=== PATIENT | female | born 1945 | race Caucasian/White ===

== ENCOUNTER → 2018-08-30 12:27 | Outpatient (CLI) | payer MEDICARE, SELFPAY ==
--- NOTE | 2018-08-30 | DI.US.S_ITS ---
PROCEDURE: US ASPIRATION CYST COMPARISON: None. INDICATIONS: LEFT KNEE BAKERS CYST PROCEDURE: PAR conference was performed with the patient all questions were answered. The patient gave informed written and verbal consent to proceed. The left popliteal fossa was imaged, and a suitable skin entry site was selected. Area was prepped and draped in the usual sterile fashion. Local anesthesia was placed using 1% lidocaine. Under ultrasound guidance, 20 gauge spinal needle was advanced into potential fluid collection however no fluid was able to be aspirated despite multiple attempts. Needle was withdrawn and hemostasis achieved. Patient tolerated procedure without immediate competition. FINDINGS: No definite loculated fluid collection to suggest Andrew's cyst is seen. There was hypoechoic appearing focus seen at the left posterior knee, potentially fluid collection however attempts to aspirate were unsuccessful. This could represent hypoechoic edematous tissue. Overall, no definite focal fluid collection is likely present. IMPRESSION: Unsuccessful ultrasound-guided aspiration of a presumed popliteal fluid collection. As discussed above, there is probably no significant fluid in this area. The attempted aspiration probably performed on an area of hypoechoic edematous tissue, which can sonographically mimic fluid. Findings were personally telephoned and discussed with Dr. Hillman on 08/30/18. Dictated by: Serafin Yuen M.D. on 08/30/2018 at 14:38 Approved by: Serafin Yuen M.D. on 08/30/2018 at 17:02
[2018-08-30 13:46] LABS: Add Manual Diff / Slide Review NO; Basophils Absolute Auto 100 /uL (0-100); Basophils Percent Auto 0.8 % (0-2); Eosinophils Absolute Auto 100 /uL (0-450); Eosinophils Percent Auto 1.5 % (2-4); Hematocrit 37.1 % (36-46); Hemoglobin 12.3 g/dL (12.0-16.0); Lymphocytes Absolute Auto 2000 /uL (1100-4500); Lymphocytes Percent Auto 22.2 % (25-40); Mean Corpuscular Hemoglobin 28.3 PG (26-34); Mean Corpuscular Volume 85.6 fL (80-100); Monocytes Absolute Auto 400 /uL (0-900); Monocytes Percent Auto 4.3 % (3-14); Neutrophils Absolute Auto 6300 /uL (1500-7000); Neutrophils Percent Auto 71.2 % (50-75); Platelet Count 519 X10^3/uL (150-400); Red Blood Cell Count 4.34 X10^6/uL (4.0-5.2); Red Cell Distribution Width 14.2 % (11.6-14.8); White Blood Cell Count 8.8 X10^3/uL (4.5-11.0)
[2018-08-30 14:05] LABS: C-Reactive Protein Quant 4.5 mg/dL (<1.0)
[2018-08-30 14:27] LABS: Erythrocyte Sedimentation Rate 92 MM/HR (0-20)
== END ==
PROVIDERS: Family Provider Physician Assistant Medical; PCP Physician Assistant Medical; Visit Provider Orthopaedic Surgery
DX: M71.22 Synovial cyst of popliteal space [Baker], left knee (principal); L03.116 Cellulitis of left lower limb; Z96.652 Presence of left artificial knee joint
CPT/HCPCS: 10005; 36415; 76942; 85025; 85651; 86140

== ENCOUNTER → 2018-09-06 09:37 | Outpatient (REF) | payer MEDICARE, SELFPAY | LOC: LAB 09:37 | PROVIDERS: Family Provider Physician Assistant Medical; PCP Physician Assistant Medical; Visit Provider Orthopaedic Surgery | DX: I89.0 Lymphedema, not elsewhere classified (principal); L03.116 Cellulitis of left lower limb; T84.84XD Pain due to internal orthopedic prosthetic devices, implants and grafts, subsequent encounter | CPT/HCPCS: 87070; 87075; 87077; 87147; 87205 ==

== ENCOUNTER → 2018-09-27 09:35 | Outpatient (REF) | payer MEDICARE, SELFPAY ==
[2018-10-03 12:15] LABS: Bacteria Det by PCR Univ WA SEE SEPARATE REPORTS
== END ==
LOC: LAB 09:35
PROVIDERS: Family Provider Physician Assistant Medical; PCP Physician Assistant Medical; Visit Provider Orthopaedic Surgery
DX: T84.84XA Pain due to internal orthopedic prosthetic devices, implants and grafts, initial encounter (principal); M25.462 Effusion, left knee
CPT/HCPCS: 87801

== ENCOUNTER 2021-10-30 13:25 | Emergency (ER) | payer MEDICARE, SELFPAY ==
[2021-10-30] VITALS (25 sets, daily range): BP systolic 108–166; BP diastolic 60–101; PULSE 68–164; RESP 14–32; TEMP 36.4; O2SAT 95–100
[2021-10-30 13:50] LABS: Add Manual Diff / Slide Review NO; Basophils Absolute Auto 100 /uL (0-100); Basophils Percent Auto 0.9 % (0-2); Eosinophils Absolute Auto 100 /uL (0-450); Eosinophils Percent Auto 0.7 % (2-4); Hematocrit 41.9 % (36-46); Hemoglobin 13.7 g/dL (12.0-16.0); Lymphocytes Absolute Auto 1900 /uL (1100-4500); Lymphocytes Percent Auto 25.6 % (25-40); Mean Corpuscular HGB Conc 32.8 % (30-36); Mean Corpuscular Hemoglobin 28.6 PG (26-34); Mean Corpuscular Volume 87.1 fL (80-100); Monocytes Absolute Auto 400 /uL (0-900); Monocytes Percent Auto 5.3 % (3-14); Neutrophils Absolute Auto 5100 /uL (1500-7000); Neutrophils Percent Auto 67.5 % (50-75); Platelet Count 328 X10^3/uL (150-400); Red Blood Cell Count 4.81 X10^6/uL (4.0-5.2); Red Cell Distribution Width 15.4 % (11.6-14.8); White Blood Cell Count 7.5 X10^3/uL (4.5-11.0)
--- NOTE | 2021-10-30 13:53 | ED_ITS ---
HPI - Arrhythmia/Palpitations General Chief Complaint: Arrhythmia/Palpitations Stated Complaint: States AFIB- sent by denise Time Seen by Provider: 10/30/21 13:38 Source: patient Mode of arrival: Ambulatory History of Present Illness HPI narrative: Patient is a 75-year-old female. Does have a history of atrial fibrillation. He is on warfarin. She had her INR checked last week and it was 2.5. She has always been between 2 and 3. She has had 2 prior cardioversions in the past. The last 1 was several years ago. Approximately 2 days ago started feeling like her heart was fluttering. Has had some occasional lightheadedness. No chest pain. No shortness of breath. Does have swelling in her left lower extremity but this is baseline for her after she had 2 left knee surgeries. Related Data Home Medications Medication Instructions Recorded Confirmed VITAMIN D (Vitamin D3) 2,000 iu PO QDAY #0 10/02/16 calcium carbonate 600 mg calcium 300 mg PO BID #0 10/02/16 (1,500 mg) tablet ferrous sulfate 325 mg (65 mg 325 mg PO QDAY #0 10/02/16 iron) tablet (Iron (ferrous sulfate)) furosemide 40 mg tablet 40 mg PO QDAY #0 10/02/16 metoprolol tartrate 25 mg tablet 25 mg PO BID #0 10/02/16 glucosamine sulfate 500 mg capsule 500 mg PO QDAY #0 10/04/16 (Genicin) Previous Rx's Medication Instructions Recorded hydrocodone 5 mg-acetaminophen 325 1 tab PO Q4HP PRN #60 tab 10/11/16 mg tablet ([place]) cephalexin 500 mg capsule (Keflex) 500 mg PO QID #60 cap 10/12/16 Allergies Allergy/AdvReac Type Severity Reaction Status Date / Time No Known Drug Allergies Allergy Verified 10/30/21 14:24 Review of Systems Constitutional Constitutional: Denies fever(s) Cardiovascular Cardiovascular: Reports as per HPI and Reports system reviewed and no additional complaints, except as documented Respiratory Respiratory: Reports as per HPI and Reports system reviewed and no additional complaints, except as documented Gastrointestinal Gastrointestinal: Reports as per HPI and Reports system reviewed and no additional complaints, except as documented Musculoskeletal Musculoskeletal: Reports system reviewed and no additional complaints, except as documented and Reports as per HPI Integumentary/Breasts Skin/Breast: Reports system reviewed and no additional complaints, except as documented Neurologic Neurologic: Reports system reviewed and no additional complaints, except as documented and Reports as per HPI Hematologic/Lymphatic On Anticoagulants: Yes Patient History Medical History Atrial fibrillation Social History marital status: lives independently: Yes Exam Initial Vital Signs Initial Vital Signs: Vital Signs Pulse Rate 152 H 10/30/21 13:30 Respiratory Rate 24 10/30/21 13:30 Pulse Oximetry 99 10/30/21 13:30 HENMT Head: normal to inspection and normocephalic Chest Chest: normal inspection of the chest Resp Effort & Inspection: normal respiratory effort Auscultation: clear to auscultation bilaterally Cardio Rate: tachycardic Rhythm: abnormal rhythm GI Inspection: normal to inspection and non-distended Skin General: no rashes or lesions noted Neuro General: patient alert, patient awake and moves all extremities Extrem General: normal to inspection and capillary refill normal Psych Appearance: grossly normal Procedures Cardioversion Consent Signed: Yes Indication: Atrial fibrillation Stability: Stable Number of attempts (shocks): 1 Joules used: 120 Cardiac rhythm post-cardioversion: Sinus rhythm Procedural Sedation Consent signed: Yes Time out performed: Yes Indication: cardioversion Preparation: classroom monitor applied, pulse oximeter, capnometry used, supplemental O2 applied, suction/airway equipment at bedside and IV secured Fentanyl: IV Fentanyl dose (mcg): 25 IV Propofol dose (mg): 60 Intraservice time/total sedation time (min): 15 ED Sedation Level: Moderate (Concious) Patient Tolerated Procedure: Well Complications: hypoxia Interventions: Airway repositioned, Assist by BVM and Oxygen applied Scores GCS [place] coma scale eye opening: Spontaneous [place] coma scale verbal response: Orientated [place] coma scale motor response: Obey commands [place] coma scale total score: 15 Course Orders Ordered: ED Orders 10/30/21 13:34 EKG-12 Lead Routine 10/30/21 13:39 RT Consult Eval and Treat Now 10/30/21 13:40 Complete Blood Count AUTO DIFF Stat Comprehensive Metabolic Panel Stat Lipase Stat Magnesium Stat 10/30/21 13:47 COVID19 -Nasal RAPID/Pre-Proc Stat 10/30/21 14:58 EKG-12 Lead Stat Discontinued Medications Fentanyl (Fentanyl 100 Mcg/2 Ml Inj) 25 mcg IV NOW ONE Stop: 10/30/21 13:55 Last Admin: 10/30/21 14:43 Dose: 25 mcg Documented by: CLINT Sodium Chloride (Normal Saline 0.9%) 1,000 mls @ 125 mls/hr IV CONT JOHANNA Last Infusion: 10/30/21 15:15 Dose: 0 mls/hr Documented by: Admin: 10/30/21 14:46 Dose: 125 mls/hr Documented by: CLINT Propofol (Propofol 200 Mg/20 Ml Vial) 100 mg 1 mg/kg (100 mg) IV NOW ONE Stop: 10/30/21 13:55 Last Admin: 10/30/21 14:49 Dose: 60 mg Documented by: CLINT Vital Signs Vital signs: Vital Signs - 8 hr 10/30/21 13:30 10/30/21 13:33 10/30/21 13:53 Temperature 97.6 F Pulse Rate 152 H 159 H 163 H Respiratory Rate 24 22 27 H Blood Pressure 150/101 H 149/88 H Pulse Oximetry 99 99 95 10/30/21 14:00 10/30/21 14:01 10/30/21 14:30 Temperature Pulse Rate 163 H 164 H 162 H Respiratory Rate 17 19 20 Blood Pressure 166/95 H 128/83 Pulse Oximetry 97 97 96 10/30/21 14:48 10/30/21 14:51 10/30/21 14:53 Temperature Pulse Rate 156 H 73 Respiratory Rate 18 18 25 H Blood Pressure 131/83 138/73 Pulse Oximetry 99 100 10/30/21 14:55 10/30/21 14:56 10/30/21 14:57 Temperature Pulse Rate 68 72 Respiratory Rate 26 H 17 Blood Pressure 123/61 112/64 Pulse Oximetry 98 96 96 10/30/21 15:00 10/30/21 15:04 10/30/21 15:08 Temperature Pulse Rate 72 72 74 Respiratory Rate 28 H 32 H 28 H Blood Pressure 108/60 110/68 121/74 Pulse Oximetry 98 98 97 10/30/21 15:12 10/30/21 15:16 10/30/21 15:20 Temperature Pulse Rate 70 70 71 Respiratory Rate 17 17 21 Blood Pressure 121/72 117/72 120/74 Pulse Oximetry 97 97 97 10/30/21 15:24 10/30/21 15:28 10/30/21 15:30 Temperature Pulse Rate 71 71 70 Respiratory Rate 16 21 27 H Blood Pressure 115/70 125/76 Pulse Oximetry 97 97 98 10/30/21 15:32 10/30/21 15:36 10/30/21 15:40 Temperature Pulse Rate 77 75 69 Respiratory Rate 29 H 14 16 Blood Pressure 127/73 123/70 122/70 Pulse Oximetry 98 99 99 10/30/21 15:56 Temperature Pulse Rate 72 Respiratory Rate 18 Blood Pressure 125/72 Pulse Oximetry 98 MDM - Arrhythmia/Palpitations Lab Data Attestation: I reviewed the patient's lab results. Result diagrams: 10/30/21 13:40 10/30/21 13:40 Labs: Lab Results 10/30/21 10/30/21 10/30/21 Range/Units 13:40 13:40 13:40 WBC 7.5 (4.5-11.0) X10^3/uL RBC 4.81 (4.0-5.2) X10^6/uL Hgb 13.7 (12.0-16.0) g/dL Hct 41.9 (36-46) % MCV 87.1 (80-100) fL MCH 28.6 (26-34) PG MCHC 32.8 (30-36) % RDW 15.4 H (11.6-14.8) % Plt Count 328 (150-400) X10^3/uL Neut % (Auto) 67.5 (50-75) % Lymph % (Auto) 25.6 (25-40) % [place] % (Auto) 5.3 (3-14) % Eos % (Auto) 0.7 L (2-4) % Baso % (Auto) 0.9 (0-2) % Neut # (Auto) 5100 (6174-5889) /uL Lymph # (Auto) 1900 (8003-3665) /uL [place] # (Auto) 400 (0-900) /uL Eos # (Auto) 100 (0-450) /uL Baso # (Auto) 100 (0-100) /uL Sodium 140 (137-145) mmol/L Potassium 4.3 (3.4-5.1) mmol/L Chloride 109 H (98-107) mmol/L Carbon Dioxide 24 (22-32) mmol/L BUN 21 H (7-17) mg/dL Creatinine 0.82 (0.52-1.04) mg/dL Estimated GFR > 60 (>60) mL/min BUN/Creatinine Ratio 25.6 H (6-22) Glucose 100 (80-110) mg/dL Calcium 9.6 (8.4-10.2) mg/dL Magnesium 2.0 (1.6-2.3) mg/dL Total Bilirubin 0.5 (0.2-1.3) mg/dL AST 22 (14-36) IU/L ALT 15 (<35) IU/L Alkaline Phosphatase 92 (38-126) U/L Total Protein 7.4 (6.3-8.2) g/dL Albumin 4.0 (3.5-5.0) g/dL Globulin 3.4 (1.7-4.1) g/dL Albumin/Globulin Ratio 1.2 (1.0-2.8) Lipase 147 (23-300) U/L SARS-CoV-2 (PCR) (Negative) 10/30/21 Range/Units 13:47 WBC (4.5-11.0) X10^3/uL RBC (4.0-5.2) X10^6/uL Hgb (12.0-16.0) g/dL Hct (36-46) % MCV (80-100) fL MCH (26-34) PG MCHC (30-36) % RDW (11.6-14.8) % Plt Count (150-400) X10^3/uL Neut % (Auto) (50-75) % Lymph % (Auto) (25-40) % [place] % (Auto) (3-14) % Eos % (Auto) (2-4) % Baso % (Auto) (0-2) % Neut # (Auto) (5390-9374) /uL Lymph # (Auto) (6894-5540) /uL [place] # (Auto) (0-900) /uL Eos # (Auto) (0-450) /uL Baso # (Auto) (0-100) /uL Sodium (137-145) mmol/L Potassium (3.4-5.1) mmol/L Chloride (98-107) mmol/L Carbon Dioxide (22-32) mmol/L BUN (7-17) mg/dL Creatinine (0.52-1.04) mg/dL Estimated GFR (>60) mL/min BUN/Creatinine Ratio (6-22) Glucose (80-110) mg/dL Calcium (8.4-10.2) mg/dL Magnesium (1.6-2.3) mg/dL Total Bilirubin (0.2-1.3) mg/dL AST (14-36) IU/L ALT (<35) IU/L Alkaline Phosphatase (38-126) U/L Total Protein (6.3-8.2) g/dL Albumin (3.5-5.0) g/dL Globulin (1.7-4.1) g/dL Albumin/Globulin Ratio (1.0-2.8) Lipase (23-300) U/L SARS-CoV-2 (PCR) Negative (Negative) ECG Data Attestation: I personally reviewed and interpreted this ECG as follows: Interpretation: Atrial fibrillation Ventricular rate [address] T wave changes Post cardioversion EKG Sinus rhythm Ventricular rate is 74 Normal axis Normal QRS Normal QTC No ST T wave changes MDM Narrative Medical decision making narrative: Patient a-fib with RVR. Probably has had symptoms for the past 2 days. Has been therapeutic on her Coumadin. Discussed options to include rate control versus rhythm control and sedation and cardioversion. After this discussion the patient opted for cardioversion. She was sedated as described above. She tolerated the procedure well. She has no memory the procedure. She converted with 1 shock. She was informed to continue to take all of her medications as directed. She is going to contact her housekeeper/custodian/laundry worker for follow-up. She was given return precautions. She expressed understanding and agreement. Discharge Plan Departure Patient Disposition: Home Clinical Impression: Atrial fibrillation Instructions: DI for Cardioversion Activity Restrictions/Additional Instructions: Continue to take all of your medications as directed. Contact your housekeeper/custodian/laundry worker and also your primary doctor for a follow-up. Return to the emergency department for any new or worsening symptoms. Prescriptions: No Action furosemide 40 MG tablet 40 mg PO QDAY Qty: 0 0RF metoprolol tartrate 25 MG tablet 25 mg PO BID Qty: 0 0RF calcium carbonate 600 MG tablet 300 mg PO BID Qty: 0 0RF VITAMIN D (Vitamin D3) 2,000 iu PO QDAY Qty: 0 0RF ferrous sulfate [Iron (ferrous sulfate)] 325 MG tablet 325 mg PO QDAY Qty: 0 0RF glucosamine sulfate [Genicin] 500 MG capsule 500 mg PO QDAY Qty: 0 0RF hydrocodone-acetaminophen [[place]] 5 MG/325 MG tablet 1 tab PO Q4HP PRNQty: 60 0RF cephalexin [Keflex] 500 MG capsule 500 mg PO QID Qty: 60 0RF Referrals: Jessica Pizano PA-C [Primary Care Provider] -
[2021-10-30 14:02] LABS: Alanine Aminotransferase 15 IU/L (<35); Albumin Globulin Ratio 1.2 (1.0-2.8); Alkaline Phosphatase 92 U/L (38-126); Aspartate Aminotransferase 22 IU/L (14-36); BUN Creatinine Ratio 25.6 (6-22); Bilirubin Total 0.5 mg/dL (0.2-1.3); Blood Urea Nitrogen 21 mg/dL (7-17); Calcium 9.6 mg/dL (8.4-10.2); Carbon Dioxide 24 mmol/L (22-32); Chloride 109 mmol/L (98-107); Estimated Glomerular Filt Rate > 60 mL/min (>60); Globulin 3.4 g/dL (1.7-4.1); Glucose 100 mg/dL (80-110); HEMOLYSIS < 15 (0-50); Potassium 4.3 mmol/L (3.4-5.1); Sodium 140 mmol/L (137-145); Total Protein 7.4 g/dL (6.3-8.2)
[2021-10-30 14:12] LABS: Lipase 147 U/L (23-300)
[2021-10-30 14:21] LABS: COVID19 -Nasal RAPID Negative (Negative)
[2021-10-30] MEDS: fentaNYL 100 MCG/2 ML INJ 25 MCG IV (14:43)
[2021-10-30] MEDS: SODIUM CHLORIDE 0.9% 1,000 ML 125 ML IV (14:46)
[2021-10-30] MEDS: propofoL 200 MG/20 ML VIAL 100 MG IV (14:49)
== END 2021-10-30 16:00 | disposition home or self-care (01) ==
PROVIDERS: Emergency Provider Emergency Medicine; Family Provider Physician Assistant Medical; PCP Physician Assistant Medical
DX: I48.91 Unspecified atrial fibrillation (principal); Z79.01 Long term (current) use of anticoagulants; Z20.822 Contact with and (suspected) exposure to COVID-19
CPT/HCPCS: 36415; 80053; 83690; 83735; 85025; 87635; 92960; 93005; 93010; 96374; 99152; 99284; 99285; C9803; J2704; J3010

== ENCOUNTER → 2023-02-08 15:25 | Outpatient (CLI) | payer OTHER, SELFPAY ==
--- NOTE | 2023-02-08 | DI.MRI.S_ITS ---
PROCEDURE: MR LUMBAR SPINE WO CON INDICATIONS: RIGHT HIP PAIN / RT LEG RADICULOPATHY TECHNIQUE: Noncontrast sagittal T1 spin echo and T2 fast echo, sagittal STIR, and T2 fast spin echo through the lumbar spine. In cases with scoliosis, additional coronal T2 fast spin echo may be performed. COMPARISON: [facility], CT, ABDOMEN/PELVIS WITH CONTRAST, 12/12/2010, 10:01. [facility] [place], , SPINE LUMB 2 OR 3VW, 03/04/2015, 11:24. FINDINGS: Image quality: This examination is limited by involuntary motion artifact. Alignment and Curvature: There is minimal retrolisthesis seen at T12-L1 and L1-L2. Mild retrolisthesis is seen at L2-L3. Minimal retrolisthesis is seen at L3-L4. Grade 1 L4-L5 anterolisthesis is seen. No vadim associated pars defects are seen. Minimal retrolisthesis is seen at L5-S1. Bone Marrow: Marrow is of normal overall signal. No acute vertebral body compression fractures. Spinal Cord: Conus medullaris terminates at the T12-L1 level. Visualized cord demonstrates normal signal and size. Paraspinous Soft Tissues: No paravertebral masses. Age-appropriate lower thoracic spine degenerative changes are seen. Several levels of bridging lower thoracic spine endplate osteophytes can be seen. T12-L1: Moderate to severe loss of disc height and disc signal can be seen. Moderate generalized disc bulge is seen. Bridging endplate osteophytes are seen. Posteriorly projected endplate osteophytes are seen. Moderate bilateral neural foraminal narrowing is seen. Moderate central canal narrowing is seen. L1-L2: [id number] loss of disc height and disc signal can be seen. Moderate disc bulge is seen, which is eccentric to the left. There is a superimposed central disc protrusion. In this patient, coronal T2-weighted images were also performed. Mild facet joint hypertrophy is seen. There is at least moderate bilateral neural foraminal narrowing seen, left worse than right. Moderate central canal narrowing is seen. L2-L3: Moderate loss of disc height is seen. Loss of disc signal is seen. At least moderate disc bulge is seen. There is a superimposed central central/left disc extrusion, with inferior migration of the disc material, as on series 5, image 19 and on series 2, image 10. Moderate facet joint hypertrophy is seen. There is a degree of compression seen upon the exiting nerve roots. Moderate to severe central canal narrowing is seen. L3-L4: Mild loss of disc height is seen. Loss of disc signal is seen. Moderate generalized disc bulge is seen. There is a mild central/right disc protrusion seen. At least moderate facet hypertrophy is seen. Associated hypertrophy of the ligamentum flavum can be seen. There is at least moderate bilateral neural foraminal narrowing. Moderate central canal narrowing is seen. L4-L5: Moderate loss of disc height is seen. Loss of disc signal is seen. Moderate disc bulge is seen, with a significant central/right disc extrusion, with superior migration of the disc material. The extruded disc material measures 1.5 cm craniocaudal and can be seen on series 6, image 13 and on series 2, image 9. Prominent facet hypertrophy is seen at this level. There is severe right-sided and moderate to severe left-sided neural foraminal narrowing. There is a degree of compression seen upon the exiting nerve roots. Moderate central canal narrowing is seen. L5-S1: Moderate loss of disc height is seen. Loss of disc signal is seen. Moderate disc bulge is seen, which is eccentric to the right. There is a superimposed central disc protrusion. There is a focal annular fissure seen posteriorly. At least moderate facet hypertrophy can be seen. There is moderate to severe bilateral neural foraminal narrowing seen, with an associated a degree of compression seen upon the exiting nerve roots. Mild central canal narrowing is seen. IMPRESSION: At the L4-L5 level, there is a prominent central/right disc extrusion, measuring 1.5 cm craniocaudal. Multiple levels of significant lumbar spine degenerative change can be seen. Several sites of significant neural foraminal narrowing can be seen, with associated exiting nerve root compression. Dictated by: Julio Givens M.D. on 02/09/2023 at 10:36 Approved by: Julio Givens M.D. on 02/09/2023 at 10:42
== END ==
PROVIDERS: Family Provider Physician Assistant Medical; PCP Physician Assistant Medical; Referring Provider Orthopaedic Surgery; Visit Provider Orthopaedic Surgery
DX: M51.26 Other intervertebral disc displacement, lumbar region (principal); M47.816 Spondylosis without myelopathy or radiculopathy, lumbar region; M47.817 Spondylosis without myelopathy or radiculopathy, lumbosacral region; M48.061 Spinal stenosis, lumbar region without neurogenic claudication; M48.07 Spinal stenosis, lumbosacral region; M25.551 Pain in right hip
CPT/HCPCS: 72148

== ENCOUNTER 2024-10-14 11:06 | Emergency (ER) | payer MEDICARE, SELFPAY ==
[2024-10-14] VITALS (35 sets, daily range): BP systolic 92–140; BP diastolic 54–89; PULSE 62–156; RESP 16–30; TEMP 36.6; O2SAT 96–100; BMI 34.9
--- NOTE | 2024-10-14 11:15 | DI.RAD.S_ITS ---
PROCEDURE: XR CHEST 1V INDICATIONS: chest pain TECHNIQUE: One view of the chest was acquired. COMPARISON: CR, CHEST FOR PICC PLACEMENT, 07/18/2016, 15:42. FINDINGS: Surgical changes and devices: None. Lungs and pleura: Lungs are clear. No pleural effusions or pneumothorax. Mediastinum: Mediastinal contours appear normal. Heart size is normal. Bones and chest wall: No suspicious bony lesions. Overlying soft tissues appear unremarkable. IMPRESSION: No acute pulmonary process. Dictated by: Ariela Parra M.D. on 10/14/2024 at 11:30 Approved by: Ariela Parra M.D. on 10/14/2024 at 11:30
--- NOTE | 2024-10-14 11:26 | EKG_ITS ---
[facility] [address] [place] [address] Test Date: 2024-10-14 Pat Name: Ting Vora Department: [facility] Room: Gender: Female [employer]: : [id number] Requested By: Order Number: [id number] Reading MD: Alvino Huff MD Measurements Intervals [place] Rate: 142 P: NC: QRS: 0 QRSD: 98 T: 104 QT: 260 QTc: 399 Interpretive Statements Atrial fibrillation with rapid ventricular response Abnormal QRS-T angle, consider primary T wave abnormality Electronically Signed On 10-14-2024 15:23:28 PDT by Alvino Huff MD
[2024-10-14 11:36] LABS: Add Manual Diff / Slide Review NO; Basophils Absolute Auto 100 /uL (0-100); Basophils Percent Auto 0.6 % (0-2); Eosinophils Absolute Auto 100 /uL (0-450); Eosinophils Percent Auto 0.5 % (2-4); Hematocrit 39.4 % (36-46); Hemoglobin 13.1 g/dL (12.0-16.0); Lymphocytes Absolute Auto 1800 /uL (1100-4500); Lymphocytes Percent Auto 18.5 % (25-40); Mean Corpuscular HGB Conc 33.3 % (30-36); Mean Corpuscular Hemoglobin 29.1 PG (26-34); Mean Corpuscular Volume 87.2 fL (80-100); Monocytes Absolute Auto 400 /uL (0-900); Monocytes Percent Auto 4.2 % (3-14); Neutrophils Absolute Auto 7200 /uL (1500-7000); Neutrophils Percent Auto 76.2 % (50-75); Platelet Count 350 X10^3/uL (150-400); Red Blood Cell Count 4.51 X10^6/uL (4.0-5.2); Red Cell Distribution Width 15.6 % (11.6-14.8); White Blood Cell Count 9.5 X10^3/uL (4.5-11.0)
--- NOTE | 2024-10-14 11:39 | ED_ITS ---
HPI - Arrhythmia/Palpitations General Chief Complaint: Arrhythmia/Palpitations Stated Complaint: AFIB Time Seen by Provider: 10/14/24 11:39 Source: patient, RN notes reviewed and old records reviewed Mode of arrival: Ambulatory Limitations: no limitations History of Present Illness HPI narrative: 78-year-old female history of atrial fibrillation on warfarin, patient has had intermittent symptoms for the past week. Patient has had symptoms before she has been cardioverted. She notes she was little bit dizzy in the morning in the past 5 days she was had some palpitations. She denies any shortness of breath. Denies any chest pain maybe a little bit of chest pressure in the epigastric area. Denies any syncope. No lightheadedness. She has not had any diaphoresis. He has had some mild nausea but no vomiting. No GI or urinary symptoms otherwise. No new swelling in her extremities. She was on metoprolol, losartan and warfarin which she states she takes daily. She was had prior cardioversion in the emergency department but states no other cardiac interventions. Remote history of knee replacement that developed infection and she was on antibiotics chronically for this. Denies any regular tobacco, occasional alcohol, no recreational drugs. Patient is had cereal and a banana this morning at 7:30 a.m. she has not had anything to eat or drink since. ZEINA pizano as her primary care, Dr. Tello he is her accounts officer. Related Data Home Medications Medication Instructions Recorded Confirmed VITAMIN D (Vitamin D3) 2,000 iu PO QDAY ##0 10/02/16 calcium carbonate 300 mg PO BID ##0 10/02/16 ferrous sulfate 325 mg (65 mg 325 mg PO QDAY ##0 10/02/16 iron) tablet (Iron (ferrous sulfate)) furosemide 40 mg tablet 40 mg PO QDAY ##0 10/02/16 metoprolol tartrate 25 mg tablet 25 mg PO BID ##0 10/02/16 glucosamine sulfate 500 mg capsule 500 mg PO QDAY ##0 10/04/16 (Genicin) Previous Rx's Medication Instructions Recorded hydrocodone 5 mg-acetaminophen 325 1 tab PO Q4HP PRN #60 tabs 10/11/16 mg tablet (Votaw) cephalexin 500 mg capsule (Keflex) 500 mg PO QID #60 caps 10/12/16 Allergies Allergy/AdvReac Type Severity Reaction Status Date / Time No Known Drug Allergies Allergy Verified 10/30/21 14:24 Review of Systems Review of Systems ROS Unobtainable: All systems reviewed & are unremarkable except as noted in HPI and below Patient History Medical History Atrial fibrillation Social History marital status: lives independently: Yes Smoking Status: Never smoker Smoking Status: Never smoker Exam Narrative Exam Narrative: GENERAL: Alert and oriented x three, female in mild distress HEENT: Head normocephalic, atraumatic, EOMI, pupils reactive, face symmetric, moist mucous membranes NECK: Supple, full range of motion CARDIOVASCULAR: Irregularly irregular and tachycardic without murmurs, rubs or gallops. No JVD. No edema bilateral lower extremities. RESPIRATORY: Breath sounds equal bilaterally, no wheezes rales or rhonchi. ABDOMEN: Soft, nontender. Normoactive bowel sounds all 4 quadrants. No guarding or rebound, rigidity, no mass : No CVA tenderness EXTREMITIES: Normal range of motion, no clubbing or edema. Neurovascularly intact NEUROLOGICAL: Cranial nerves II through XII grossly intact. Moving all extremities SKIN: Warm, dry, no petechiae, no rashes or lesions. Initial Vital Signs Initial Vital Signs: Vital Signs Temperature 98 F 10/14/24 11:11 Pulse Rate 79 10/14/24 11:11 Respiratory Rate 18 10/14/24 11:11 Blood Pressure 140/89 10/14/24 11:11 Pulse Oximetry 100 10/14/24 11:11 Oxygen Delivery Method Room Air 10/14/24 11:11 Procedures Cardioversion Consent Signed: Yes Stability: Stable Number of attempts (shocks): 1 Joules used: 120 Cardiac rhythm post-cardioversion: Sinus rhythm Procedural Sedation Consent signed: Yes Time out performed: Yes Indication: cardioversion ASA Class: II Time of Last PO Intake: 07:30 Preparation: roll form operator applied, pulse oximeter, capnometry used, supplemental O2 applied and suction/airway equipment at bedside IV Propofol dose (mg): 50 ED Sedation Level: Moderate (Concious) Patient Tolerated Procedure: Well Complications: hypoxia Interventions: Airway repositioned and Assist by BVM Course Orders Ordered: ED Orders 10/14/24 11:15 XR chest 1V Stat EKG-12 Lead Stat 10/14/24 11:20 Complete Blood Count AUTO DIFF Stat Comprehensive Metabolic Panel Stat Lipase Stat Magnesium Stat NT-proBNP (BNP-Adult 18+) Stat PTT Partial Thromboplastin Cesar Stat Prothrombin Time INR Stat Troponin & CK Cardiac Panel Stat 10/14/24 14:46 EKG-12 Lead Stat Discontinued Medications Sodium Chloride (Normal Saline 0.9%) 1,000 mls @ 1,000 mls/hr IV BOLUS ONE Stop: 10/14/24 12:38 Last Infusion: 10/14/24 14:01 Dose: Infused Documented By: Admin: 10/14/24 11:55 Dose: 1,000 mls/hr Documented By: KASANDRA Metoprolol Tartrate (Metoprolol Tartrate 5 Mg/5 Ml Inj) 5 mg IV Q5M JOHANNA Stop: 10/14/24 11:56 Last Admin: 10/14/24 12:10 Dose: 5 mg Documented By: Admin: 10/14/24 12:00 Dose: 5 mg Documented By: Admin: 10/14/24 11:47 Dose: 5 mg Documented By: KASANDRA Propofol (Propofol 200 Mg/20 Ml Vial) 100 mg IV NOW ONE Stop: 10/14/24 13:25 Last Admin: 10/14/24 14:50 Dose: 50 mg Documented By: EDDY Vital Signs Vital signs: Vital Signs - 8 hr 10/14/24 11:11 10/14/24 12:11 10/14/24 13:40 Temperature 98 F Pulse Rate 79 143 H Respiratory Rate 18 18 Blood Pressure 140/89 114/69 107/73 Pulse Oximetry 100 96 Oxygen Delivery Method Room Air Room Air 10/14/24 13:45 10/14/24 13:55 10/14/24 14:00 Temperature Pulse Rate 145 H 149 H Respiratory Rate 20 Blood Pressure 117/77 Pulse Oximetry 98 Oxygen Delivery Method 10/14/24 14:00 10/14/24 14:05 10/14/24 14:05 Temperature Pulse Rate 145 H Respiratory Rate 19 Blood Pressure 124/75 101/58 L Pulse Oximetry 99 Oxygen Delivery Method 10/14/24 14:10 10/14/24 14:10 10/14/24 14:15 Temperature Pulse Rate 149 H 152 H Respiratory Rate 16 22 Blood Pressure 108/68 Pulse Oximetry 99 99 Oxygen Delivery Method 10/14/24 14:15 10/14/24 14:20 10/14/24 14:20 Temperature Pulse Rate 151 H Respiratory Rate 30 H Blood Pressure 113/72 118/62 Pulse Oximetry 99 Oxygen Delivery Method 10/14/24 14:25 10/14/24 14:30 10/14/24 14:30 Temperature Pulse Rate 145 H 142 H Respiratory Rate 27 H 22 Blood Pressure 133/69 Pulse Oximetry 99 Oxygen Delivery Method 10/14/24 14:33 10/14/24 14:35 10/14/24 14:35 Temperature Pulse Rate 154 H 156 H Respiratory Rate 16 18 Blood Pressure 133/69 96/66 Pulse Oximetry 100 99 Oxygen Delivery Method 10/14/24 14:38 10/14/24 14:38 10/14/24 14:40 Temperature Pulse Rate 68 66 Respiratory Rate 17 21 Blood Pressure 92/59 L Pulse Oximetry 100 Oxygen Delivery Method 10/14/24 14:41 10/14/24 14:41 10/14/24 14:41 Temperature Pulse Rate 65 65 Respiratory Rate 20 24 Blood Pressure 131/78 131/78 Pulse Oximetry 100 99 Oxygen Delivery Method 10/14/24 14:45 10/14/24 14:45 10/14/24 14:50 Temperature Pulse Rate 63 143 H Respiratory Rate 20 18 Blood Pressure 105/60 Pulse Oximetry 100 Oxygen Delivery Method 10/14/24 14:50 10/14/24 14:52 10/14/24 14:55 Temperature Pulse Rate 66 67 Respiratory Rate 18 Blood Pressure 105/60 106/57 L Pulse Oximetry 100 100 Oxygen Delivery Method Room Air 10/14/24 14:55 10/14/24 14:58 10/14/24 15:00 Temperature Pulse Rate 65 64 64 Respiratory Rate 22 18 18 Blood Pressure 117/63 Pulse Oximetry 98 99 Oxygen Delivery Method 10/14/24 15:00 10/14/24 15:03 10/14/24 15:05 Temperature Pulse Rate 64 62 Respiratory Rate 18 20 Blood Pressure 117/63 114/65 Pulse Oximetry 100 100 Oxygen Delivery Method 10/14/24 15:05 10/14/24 15:10 10/14/24 15:10 Temperature Pulse Rate 63 Respiratory Rate 21 Blood Pressure 122/65 114/66 Pulse Oximetry 98 Oxygen Delivery Method 10/14/24 15:13 10/14/24 15:15 10/14/24 15:15 Temperature Pulse Rate 65 63 Respiratory Rate 18 23 Blood Pressure 116/55 L 114/65 Pulse Oximetry 100 99 Oxygen Delivery Method 10/14/24 15:18 10/14/24 15:20 10/14/24 15:20 Temperature Pulse Rate 63 64 Respiratory Rate 20 19 Blood Pressure 116/54 L 113/68 Pulse Oximetry 100 99 Oxygen Delivery Method 10/14/24 15:25 10/14/24 15:25 10/14/24 15:30 Temperature Pulse Rate 65 70 Respiratory Rate 19 25 H Blood Pressure 116/70 Pulse Oximetry 100 99 Oxygen Delivery Method 10/14/24 15:31 10/14/24 15:31 10/14/24 15:35 Temperature Pulse Rate 71 65 Respiratory Rate 21 21 Blood Pressure 121/84 Pulse Oximetry 98 99 Oxygen Delivery Method 10/14/24 15:35 10/14/24 15:40 10/14/24 15:40 Temperature Pulse Rate 64 Respiratory Rate 18 Blood Pressure 122/79 118/83 Pulse Oximetry 100 Oxygen Delivery Method MDM - Arrhythmia/Palpitations Lab Data 10/14/24 11:20 10/14/24 11:20 Labs: Lab Results 10/14/24 Range/Units 11:20 WBC 9.5 (4.5-11.0) X10^3/uL RBC 4.51 (4.0-5.2) X10^6/uL Hgb 13.1 (12.0-16.0) g/dL Hct 39.4 (36-46) % MCV 87.2 (80-100) fL MCH 29.1 (26-34) PG MCHC 33.3 (30-36) % RDW 15.6 H (11.6-14.8) % Plt Count 350 (150-400) X10^3/uL Neut % (Auto) 76.2 H (50-75) % Lymph % (Auto) 18.5 L (25-40) % Harris % (Auto) 4.2 (3-14) % Eos % (Auto) 0.5 L (2-4) % Baso % (Auto) 0.6 (0-2) % Neut # (Auto) 7200 H (8203-0373) /uL Lymph # (Auto) 1800 (4958-4583) /uL Harris # (Auto) 400 (0-900) /uL Eos # (Auto) 100 (0-450) /uL Baso # (Auto) 100 (0-100) /uL PT 28.8 H (9.4-12.5) SECONDS INR 2.6 H (0.9-1.3) APTT 44 H (25.1-36.5) SECONDS Sodium 138 (137-145) mmol/L Potassium 4.4 (3.4-5.1) mmol/L Chloride 107 (98-107) mmol/L Carbon Dioxide 21 L (22-32) mmol/L BUN 21 H (7-17) mg/dL Creatinine 0.82 (0.52-1.04) mg/dL Estimated GFR > 60 (>60) mL/min BUN/Creatinine Ratio 25.6 H (6-22) Glucose 93 (80-110) mg/dL Calcium 9.9 (8.4-10.2) mg/dL Magnesium 1.9 (1.6-2.3) mg/dL Total Bilirubin 0.6 (0.2-1.3) mg/dL AST 25 (14-36) IU/L ALT 22 (<35) IU/L Alkaline Phosphatase 92 (38-126) U/L Total Creatine Kinase 63 (30-135) U/L Troponin I < 0.012 (0.01-0.034) ng/mL NT-Pro-B Natriuret Pep 6670 H (<450) pg/mL Total Protein 7.2 (6.3-8.2) g/dL Albumin 4.1 (3.5-5.0) g/dL Globulin 3.1 (1.7-4.1) g/dL Albumin/Globulin Ratio 1.3 (1.0-2.8) Lipase 134 (23-300) U/L Point of Care Testing Test Results Negative ECG Data Attestation: I personally reviewed and interpreted this ECG as follows: Interpretation: AFib RVR rate of 142 QRS of 98 QTC of 399. Repeat EKG shows sinus rhythm, rate of 65 DE 160 QRS of 104 QTC of [address] changes. MDM Narrative Medical decision making narrative: EKG shows AFib RVR, nonspecific change. Labs show normal white count hemoglobin and platelets. INR is 2.6 patient appears anticoagulated appropriately. CO2 is 21 BUN 19 creatinine is 0.82 potassium is 4.4 with a Mag of 1.9 glucose is 93 AST ALT alk-phos are all normal troponins less than 0.012 with a BNP of 6670 patient does not have any priors for comparison Chest x-ray shows no acute pulmonary process. Patient had metoprolol IV x3, L bolus. She had improvement in her her rate but is still AFib RVR. Discussed potential for cardioversion. Patient was agreeable, she was appropriately anticoagulated. Discussed risks versus benefits and she would like to proceed. Patient does note she has had less fluid intake recently. Patient tolerated procedure well. She was now in sinus rhythm. Follow up with Cardiology Discharge Plan Departure Patient Disposition: Home Clinical Impression: Atrial fibrillation with rapid ventricular response Instructions: DI for Atrial Fibrillation Activity Restrictions/Additional Instructions: Follow up with your cardiology team. Please call for an appointment. You did have a cardioversion and procedural sedation today, no driving vehicles, hazardous activities or activities that are high-risk for the next 24 hours. Please return if you have recurrent symptoms, new chest pain or shortness of breath, lightheadedness or passing out, new swelling of your extremities, recurrent symptoms or other new or concerning changes. Prescriptions: No Action furosemide 40 MG tablet 40 mg PO QDAY Qty: 0 metoprolol tartrate 25 MG tablet 25 mg PO BID Qty: 0 calcium carbonate 600 MG tablet 300 mg PO BID Qty: 0 VITAMIN D (Vitamin D3) 2,000 iu PO QDAY Qty: 0 ferrous sulfate [Iron (ferrous sulfate)] 325 MG tablet 325 mg PO QDAY Qty: 0 glucosamine sulfate [Genicin] 500 MG capsule 500 mg PO QDAY Qty: 0 hydrocodone-acetaminophen [Votaw] 5 MG/325 MG tablet 1 tab PO Q4HP PRNQty: 60 0RF cephalexin [Keflex] 500 MG capsule 500 mg PO QID Qty: 60 0RF Referrals: Jessica Pizano PA-C [Primary Care Provider] - Stand Alone Forms: Patient Portal/API/Survey
[2024-10-14 11:42] LABS: INR 2.6 (0.9-1.3); Prothrombin Time 28.8 SECONDS (9.4-12.5)
[2024-10-14 11:44] LABS: PTT Partial Thromboplastin Tim 44 SECONDS (25.1-36.5)
[2024-10-14 11:45] LABS: Alanine Aminotransferase 22 IU/L (<35); Albumin 4.1 g/dL (3.5-5.0); Albumin Globulin Ratio 1.3 (1.0-2.8); Alkaline Phosphatase 92 U/L (38-126); Aspartate Aminotransferase 25 IU/L (14-36); BUN Creatinine Ratio 25.6 (6-22); Bilirubin Total 0.6 mg/dL (0.2-1.3); Blood Urea Nitrogen 21 mg/dL (7-17); Calcium 9.9 mg/dL (8.4-10.2); Carbon Dioxide 21 mmol/L (22-32); Chloride 107 mmol/L (98-107); Creatine Kinase 63 U/L (30-135); Estimated Glomerular Filt Rate > 60 mL/min (>60); Globulin 3.1 g/dL (1.7-4.1); Glucose 93 mg/dL (80-110); HEMOLYSIS < 15 (0-50); Lipase 134 U/L (23-300); Magnesium 1.9 mg/dL (1.6-2.3); Potassium 4.4 mmol/L (3.4-5.1); Sodium 138 mmol/L (137-145); Total Protein 7.2 g/dL (6.3-8.2)
[2024-10-14] MEDS: METOPROLOL TARTRATE 5 MG/5 ML INJ IV ×3 (11:47→12:10)
[2024-10-14] MEDS: SODIUM CHLORIDE 0.9% 1,000 ML 1000 ML IV (11:55)
[2024-10-14 11:57] LABS: NT-proBNP (BNP-Adult 18+) 6670 pg/mL (<450); Troponin I < 0.012 ng/mL (0.01-0.034)
[2024-10-14] MEDS: propofoL 200 MG/20 ML VIAL 100 MG IV (14:50)
--- NOTE | 2024-10-14 14:55 | PC.NURSE ---
procedural sedation with propofol for cardioversion, Dr Ritter and respiratory therapist Tj at bedside. Dr Ritter administered 50 of propofol, patient was delivered one shock at 120J, rhythm strip printed shows patient is in NSR, EKG ordered to confirm. Patient oxygen saturation and blood pressure dropped during procedure, BVM and jaw thrust used to increase respirations, and bolus of fluids verbal order from Dr Ritter started to support blood pressure. Patient emerges alert and oriented, able to maintain sats at 99% on RA
--- NOTE | 2024-10-14 14:56 | EKG_ITS ---
[id number] [address] Test Date: 2024-10-14 Pat Name: Ting Vora Department: [facility] Room: Gender: Female [employer] Chief: : 1945 Requested By: Order Number: [id number] Reading MD: Alvino Huff MD Measurements Intervals [place] Rate: 65 P: 45 KS: 160 QRS: -14 QRSD: 104 T: 48 QT: 406 QTc: 422 Interpretive Statements Normal sinus rhythm Possible Left atrial enlargement Electronically Signed On 10-14-2024 15:22:45 PDT by Alvino Huff MD
== END 2024-10-14 15:53 | disposition home or self-care (01) ==
PROVIDERS: Emergency Provider Emergency Medicine; Family Provider Physician Assistant Medical; PCP Physician Assistant Medical
DX: I48.20 Chronic atrial fibrillation, unspecified (principal); Z79.01 Long term (current) use of anticoagulants; R42 Dizziness and giddiness
CPT/HCPCS: 36415; 71045; 80053; 82550; 83690; 83735; 83880; 84484; 85025; 85610; 85730; 92960; 93005; 93010; 96361; 96374; 99152; 99285; J2704